=== PATIENT | female | born 1995 | race Caucasian/White ===

== ENCOUNTER 2017-05-31 06:40 | Observation (INO) | payer OTHER ==
[~2017-05-31] VITALS: Ht 159 cm; Wt 101.6 kg
[2017-05-31] MEDS ORDERED: IRON18TA PO (07:37)
[2017-05-31] MEDS ORDERED: FOLI1 PO (07:37)
[2017-05-31] MEDS ORDERED: CALC-1038 PO (07:37)
[2017-05-31 08:53] VITALS: BP 122/82
== END 2017-05-31 08:45 | disposition home or self-care (01) ==
LOC: 4S 06:40
PROVIDERS: ADMIT Obstetrics & Gynecology; ATTEND Obstetrics & Gynecology
DX: O62.9 Abnormality of forces of labor, unspecified (principal); O26.893 Other specified pregnancy related conditions, third trimester; R10.9 Unspecified abdominal pain; Z3A.38 38 weeks gestation of pregnancy
CPT/HCPCS: 59025; G0378

== ENCOUNTER 2017-06-05 17:55 | Inpatient (IN) | payer OTHER ==
[~2017-06-05] VITALS: Ht 159 cm; Wt 92.5 kg
[~2017-06-05 17:55] MED LIST: CALC-1038 PO; FOLI1 PO; IRON18TA PO
[2017-06-05 18:27] VITALS: BP 125/75
[2017-06-05] MEDS ORDERED: RINGERS SOLUTION,LACTATED 1,000 ML IV PRN (22:04)
[2017-06-05] MEDS ORDERED: OXYTOCIN 30 UNITS/LACT RINGERS 500 ML IV ONE (22:04)
[2017-06-05] MEDS ORDERED: CITRIC ACID/SODIUM CITRATE 30 ML SOLUTION UDCUP PO PRN (22:15)
[2017-06-05] MEDS ORDERED: METOCLOPRAMIDE HCL 5 MG/ML 2 ML VIAL IVP PRN (22:15)
[2017-06-05] MEDS ORDERED: AMPICILLIN SODIUM 2 GM/NS 100 ML IV ONE (22:15)
[2017-06-05 22:32] LABS: BASOPHILS # (AUTO) 0.03 K/uL (0.00-0.20); BASOPHILS % (AUTO) 0.4 % (0.0-2.0); EOSINOPHILS % (AUTO) 0.03 % (1.0-6.0); HEMATOCRIT 32.8 % (36-46); HEMOGLOBIN 10.9 g/dL (12.0-16.0); LYMPHOCYTES # (AUTO) 1.6 K/uL (1.0-4.8); LYMPHOCYTES % (AUTO) 18.2 % (22.0-44.0); MEAN CORPUSCULAR HEMOGLOBIN 28.1 pg (26.0-34.0); MEAN CORPUSCULAR HGB CONC 33.3 G/dL (31.0-37.0); MEAN CORPUSCULAR VOLUME 84 fL (80-100); MONOCYTES # (AUTO) 0.4 K/uL (0.1-1.0); MONOCYTES % (AUTO) 4.2 % (2.0-9.0); NEUTROPHILS # (AUTO) 6.8 K/uL (1.8-7.7); NEUTROPHILS % (AUTO) 77.3 % (40.0-70.0); RED BLOOD CELL COUNT(AUTO) 3.89 MIL/uL (4.00-5.20); RED CELL DISTRIBUTION WIDTH 16.1 % (11.5-14.5); WHITE BLOOD COUNT (AUTO) 8.8 K/uL (4.5-11.0)
[2017-06-05] MEDS: RINGERS SOLUTION,LACTATED 1,000 ML IV SCH (23:26)
[2017-06-06 00:06] LABS: RUBELLA SCREEN (IGG) IMMUNE (IMMUNE)
[2017-06-06] MEDS ORDERED: INFLUENZA VIRUS VACCINE QVS 2017-18 (3YR+)/PF 60 MCG/0.5 ML SYRINGE IM ONE (00:15)
[2017-06-06] MEDS ORDERED: MISOPROSTOL 25 MCG TABLET VG SCH (01:00)
[2017-06-06] MEDS: RINGERS SOLUTION,LACTATED 1,000 ML IV SCH ×3 (02:00→16:37)
[2017-06-06] MEDS: AMPICILLIN SODIUM 1 GM/NS 50 ML IV SCH ×5 (03:09→19:21)
[2017-06-06] MEDS ORDERED: MISOPROSTOL 25 MCG TABLET VG ONE (07:20)
[2017-06-06] MEDS ORDERED: OXYGEN THERAPY IH SCH (08:00)
[2017-06-06] MEDS: FentaNYL CITRATE-PF 100 MCG/2 ML VIAL IVP PRN ×6 (12:13→15:17)
[2017-06-06] MEDS: MISOPROSTOL 25 MCG TABLET VG SCH ×2 (14:01→18:02)
[2017-06-06] MEDS ORDERED: FentaNYL/BUPIV 0.125%/NS/PF 200 ML ED ONE (15:58)
[2017-06-06] MEDS ORDERED: FentaNYL/BUPIV 0.125%/NS/PF 200 ML ED PRN (17:39)
[2017-06-06] MEDS ORDERED: NALBUPHINE HCL 10 MG/ML VIAL IVP PRN ×2 (17:45)
[2017-06-06] MEDS ORDERED: PROMETHAZINE HCL 12.5 MG in SODIUM CHLORIDE 0.9% 50 ML IV PRN (17:45)
[2017-06-06] MEDS ORDERED: ONDANSETRON HCL 4 MG/2 ML VIAL IVP PRN (17:45)
[2017-06-06] MEDS ORDERED: DiphenhydrAMINE HCL 50 MG/ML VIAL IVP PRN (17:45)
[2017-06-06] MEDS ORDERED: LIDOCAINE HCL/PF 2% 5 ML VIAL ONE (20:21)
[2017-06-06] MEDS ORDERED: LIDOCAINE HCL/PF 1% 30 ML VIAL ONE ×2 (21:08→23:36)
[2017-06-07] MEDS: FentaNYL CITRATE-PF 100 MCG/2 ML VIAL IVP PRN (00:44)
[2017-06-07] MEDS ORDERED: OXYTOCIN 30 UNITS/LACT RINGERS 500 ML IV ONE (00:53)
[2017-06-07] MEDS ORDERED: LIDOCAINE HCL/PF 1% 30 ML VIAL INJ PRN (01:00)
[2017-06-07] MEDS ORDERED: IBUPROFEN 800 MG TABLET PO PRN (01:00)
[2017-06-07] MEDS ORDERED: LANOLIN 7 GM OINTMENT TP PRN (01:00)
[2017-06-07] MEDS ORDERED: BENZOCAINE 20%/MENTHOL 56 GM SPRAY CANISTER TP PRN (01:00)
[2017-06-07] MEDS ORDERED: MAGNESIUM HYDROXIDE SUSPENSION 30 ML UDCUP PO PRN (01:00)
[2017-06-07] MEDS ORDERED: OxyCODONE HCL/ACETAMINOPHEN 5-325 MG TABLET PO PRN ×2 (01:00)
[2017-06-07] MEDS ORDERED: GLYCERIN/WITCH HAZEL LEAF 40 PADS JAR TP PRN (01:00)
[2017-06-08 05:58] LABS: BASOPHILS % (AUTO) 0.3 % (0.0-2.0); EOSINOPHILS % (AUTO) 0.2 % (1.0-6.0); HEMATOCRIT 25.8 % (36-46); HEMOGLOBIN 8.7 g/dL (12.0-16.0); LYMPHOCYTES # (AUTO) 2.3 K/uL (1.0-4.8); LYMPHOCYTES % (AUTO) 20.9 % (22.0-44.0); MEAN CORPUSCULAR HEMOGLOBIN 28.4 pg (26.0-34.0); MEAN CORPUSCULAR HGB CONC 33.7 G/dL (31.0-37.0); MEAN CORPUSCULAR VOLUME 84 fL (80-100); MONOCYTES # (AUTO) 0.6 K/uL (0.1-1.0); MONOCYTES % (AUTO) 5.4 % (2.0-9.0); NEUTROPHILS # (AUTO) 8.2 K/uL (1.8-7.7); NEUTROPHILS % (AUTO) 73.2 % (40.0-70.0); RED BLOOD CELL COUNT(AUTO) 3.06 MIL/uL (4.00-5.20); RED CELL DISTRIBUTION WIDTH 15.9 % (11.5-14.5); WHITE BLOOD COUNT (AUTO) 11.1 K/uL (4.5-11.0)
[2017-06-08] MEDS ORDERED: IBUP-2071 PO (11:49)
[2017-06-08] MEDS ORDERED: FERR-82 BU (11:50)
[2017-06-08] MEDS ORDERED: DSS100 PO (11:51)
== END 2017-06-08 12:45 | disposition home or self-care (01) | DRG 775 ==
LOC: 4S 17:55 → OBSVTOIN 22:12
PROVIDERS: ADMIT Obstetrics & Gynecology; ATTEND Obstetrics & Gynecology
PROC: 10E0XZZ Delivery of Products of Conception, External Approach (ICD-10-PCS; principal; 2017-06-06)
PROC: 0KQM0ZZ Repair Perineum Muscle, Open Approach (ICD-10-PCS; 2017-06-06)
PROC: 3E0R3BZ Introduction of Anesthetic Agent into Spinal Canal, Percutaneous Approach (ICD-10-PCS; 2017-06-06)
PROC: 00HU33Z Insertion of Infusion Device into Spinal Canal, Percutaneous Approach (ICD-10-PCS; 2017-06-06)
DX: O70.1 Second degree perineal laceration during delivery (principal); Z37.0 Single live birth; Z3A.39 39 weeks gestation of pregnancy
CPT/HCPCS: 76805; 80307; 86592; 86762; 86850; 86900; 86901; 87340; 89060; J0290; J2590; J3010; J3490; J7120